=== PATIENT | male | born 1975 | race Caucasian/White ===

== ENCOUNTER 2017-11-10 18:37 | Emergency (ER) | payer MEDICAID, OTHER ==
--- NOTE | 2017-11-10 19:12 | ED PDOC ---
HPI: CCC, URI, Sore Throat Time Seen by Provider: 11/10/17 18:58 Chief Complaint (Nursing): Flu-like Symptoms Chief Complaint (Provider): Flu-like Symptoms History Per: Patient History/Exam Limitations: no limitations Onset/Duration Of Symptoms: Days (x2) Current Symptoms Are (Timing): Still Present Associated Symptoms: Fever, Cough, Sputum, Myalgias Additional Complaint(s): Gurwinder Zhao is a 42 y/o male who presents to the ER complaining of a cough associated with body aches, fever, dizziness, since yesterday afternoon. Cough is productive of sputum. He admits to having some chest tightness with coughing. Patient did not receive flu shot this year. Took Naprosyn 1 hour prior to arrival with no improvement. No nausea, vomiting, abdominal pain, sob, or headache. (+) sweats PMD: None Past Medical History Reviewed: Historical Data, Nursing Documentation, Vital Signs Vital Signs: Last Vital Signs Temp 100.9 F H 11/10/17 18:42 Pulse 130 H 11/10/17 18:42 Resp 16 11/10/17 18:42 BP 150/97 H 11/10/17 18:42 Pulse Ox 100 11/10/17 20:27 - Medical History PMH: No Chronic Diseases - Family History Family History: States: Unknown Family Hx - Immunization History Hx Tetanus Toxoid Vaccination: Yes Hx Influenza Vaccination: No Hx Pneumococcal Vaccination: No - Home Medications Home Medications: Ambulatory Orders Medication Instructions Recorded Cyclobenzaprine [Flexeril] 5 mg PO TID #21 tab 08/05/16 Naproxen [Naprosyn] 500 mg PO BID #20 tab 08/05/16 Acetaminophen [Acetaminophen Extra 2 tab PO Q4 PRN #24 tablet 11/10/17 Strength] Ibuprofen [Motrin] 600 mg PO Q8 PRN #21 tab 11/10/17 Oseltamivir Phosphate [Tamiflu] 75 mg PO BID #9 capsule 11/10/17 - Allergies Allergies/Adverse Reactions: Allergies Allergy/AdvReac Type Severity Reaction Status Date / Time Penicillins Allergy Intermediate SWELLING Verified 08/05/16 21:26 Review of Systems ROS Statement: Except As Marked, All Systems Reviewed And Found Negative Constitutional: Positive for: Fever, Sweats, Other (Body aches) Cardiovascular: Positive for: Chest Pain (tightness, with cough) Respiratory: Positive for: Cough, Sputum Gastrointestinal: Negative for: Nausea, Vomiting, Diarrhea Neurological: Positive for: Dizziness. Negative for: Headache Physical Exam - Reviewed Nursing Documentation Reviewed: Yes Vital Signs Reviewed: Yes - Physical Exam Appears: Positive for: Non-toxic, No Acute Distress Head Exam: Positive for: ATRAUMATIC, NORMOCEPHALIC Skin: Positive for: Normal Color, Warm, DRY Eye Exam: Positive for: EOMI, Normal appearance, PERRL ENT: Positive for: Pharynx Is (clear), Nasal Congestion. Negative for: Pharyngeal Erythema, Tonsillar Exudate Neck: Positive for: Normal, Painless ROM Cardiovascular/Chest: Positive for: Tachycardia (with regular rhythm). Negative for: Murmur Respiratory: Positive for: Decreased Breath Sounds. Negative for: Rhonchi, Wheezing, Respiratory Distress Extremity: Positive for: Normal ROM. Negative for: Deformity Neurologic/Psych: Positive for: Alert, Oriented - ECG O2 Sat by Pulse Oximetry: 100 (RA) Pulse Ox Interpretation: Normal - Progress ED Course And Treament: cxr: nad influenza A positive acetaminophen 975mg x 1 dose tamiflu 75 mg x 1 dose NS 1 liter wide open toradol 15 mg iv x 1 dose Medical Decision Making Medical Decision Making: Time: 19:00 Initial Plan: --Chest x-ray --Tylenol 975 mg PO --Influenza A B --Reevaluation 19:57 Pt continues to be tachy. Started IV fluids and 15 mg Toradol given. Scribe Attestation: Documented by Stefani Pascal, acting as a scribe for Jaqueline Holliday PA-C Provider Scribe Attestation: All medical record entries made by the Scribe were at my direction and personally dictated by me. I have reviewed the chart and agree that the record accurately reflects my personal performance of the history, physical exam, medical decision making, and the department course for this patient. I have also personally directed, reviewed, and agree with the discharge instructions and disposition. Disposition - Clinical Impression Clinical Impression: Influenza - Disposition Referrals: [facility] [Outside] Disposition: Routine/Home Disposition Time: 20:42 Condition: FAIR Prescriptions: Acetaminophen [Acetaminophen Extra Strength] 2 tab PO Q4 PRN #24 tablet PRN Reason: Fever >100.4 F Ibuprofen [Motrin] 600 mg PO Q8 PRN #21 tab PRN Reason: Fever >100.4 F Oseltamivir Phosphate [Tamiflu] 75 mg PO BID #9 capsule Instructions: Influenza (ED) Forms: [employer] (Mont[place]erratian), [facility] ED School/Work Excuse
[2017-11-10] MEDS ORDERED: Sodium Chloride 0.9% 1,000 ML IV STA (19:57)
[2017-11-10 20:59] VITALS: BP 127/72; PULSE 87; RESP 18; TEMP 97.8; O2SAT 97
--- NOTE | 2017-11-11 09:03 | RAD ---
HISTORY: cough COMPARISON: No prior. TECHNIQUE: Chest PA and lateral FINDINGS: LUNGS: No active pulmonary disease. PLEURA: No significant pleural effusion identified. No pneumothorax apparent. CARDIOVASCULAR: Normal. OSSEOUS STRUCTURES: No significant abnormalities. VISUALIZED UPPER ABDOMEN: Normal. OTHER FINDINGS: None. IMPRESSION: No active disease.
== END 2017-11-10 21:11 | disposition home or self-care (01) ==
LOC: H.ER 18:37
DX: J10.1 Influenza due to other identified influenza virus with other respiratory manifestations (principal); Z88.0 Allergy status to penicillin
CPT/HCPCS: 71046; 87804; 96374; 99283; J1885; J7040

== ENCOUNTER 2018-08-04 11:50 | Emergency (ER) | payer MEDICAID, OTHER ==
[2018-08-04 11:58] VITALS: BMI 31.4
[2018-08-04 12:59] VITALS: RESP 18
--- NOTE | 2018-08-04 13:01 | RAD ---
Date of service: 08/04/2018 HISTORY: possible admission COMPARISON: Chest radiograph dated 11/10/2017. FINDINGS: LUNGS: No active pulmonary disease. PLEURA: No significant pleural effusion identified, no pneumothorax apparent. CARDIOVASCULAR: Normal. OSSEOUS STRUCTURES: Unchanged. VISUALIZED UPPER ABDOMEN: Normal. OTHER FINDINGS: None. IMPRESSION: No active disease.
[2018-08-04 13:29] LABS: VENOUS BLOOD GAS BASE EXCESS 2.1 mmol/L (0.0-2.0); VENOUS BLOOD GAS PCO2 52 mmHg (40-60); VENOUS BLOOD GAS PO2 25 mm/Hg (30-55); VENOUS BLOOD PH 7.35 (7.32-7.43)
[2018-08-04 13:38] LABS: BASO % 0.5 % (0.0-2.0); EOS # 0.1 K/uL (0.0-0.7); EOS % 1.3 % (0.0-4.0); HEMOGLOBIN 15.8 g/dL (12.0-18.0); LYMPH # 1.7 K/uL (1.0-4.3); LYMPH % 31.6 % (20.0-40.0); MEAN CELL VOLUME 89.4 fl (80.0-94.0); MEAN CORPUSCULAR HEMOGLOBIN 30.3 pg (27.0-31.0); MEAN PLATELET VOLUME 9.7 fl (7.2-11.7); MONO # 0.7 K/uL (0.0-0.8); MONO % 12.8 % (0.0-10.0); NEUT # 2.9 K/uL (1.8-7.0); NEUT % 53.8 % (50.0-75.0); NRBC % 0.1 % (0.0-0.0); RBC 5.22 Mil/uL (4.40-5.90); RED CELL DISTRIBUTION WIDTH 14.1 % (11.5-14.5); WHITE BLOOD COUNT 5.4 K/uL (4.8-10.8)
[2018-08-04 13:44] LABS: BLOOD UREA NITROGEN 16 mg/dl (9-20); CALCIUM 9.2 mg/dL (8.4-10.2); GFR NON-AFRICAN AMERICAN > 60
[2018-08-04 13:46] LABS: PROTHROMBIN TIME 11.2 Seconds (9.8-13.1)
[2018-08-04 13:49] LABS: PARTIAL THROMBOPLASTIN TIME 33.2 Seconds (25.6-37.1)
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
[2018-08-04] MEDS ORDERED: Naproxen 500 MG TAB PO STA (15:01)
[2018-08-04] MEDS ORDERED: Naproxen 500 MG TAB PO ONE (15:06)
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
[2018-08-04] MEDS ORDERED: Lidocaine 5% Patch TD STA (18:56)
[2018-08-04 20:06] VITALS: BP 146/91; PULSE 71; TEMP 98
--- NOTE | 2018-08-04 20:06 | ED PDOC ---
- Laboratory Results Result Diagrams: 08/04/18 13:15 08/04/18 13:15 - ECG O2 Sat by Pulse Oximetry: 99 Pulse Ox Interpretation: Normal Medical Decision Making Medical Decision MakinPM Case endorsed to me by Dr. Dumas pending 2nd troponin 8PM Patient informed of results, states he's feeling well Vitals normalized Advised NSAIDs, lidocaine patch, and rest Well appearing upon discharge Disposition - Clinical Impression Clinical Impression: Chest wall pain, Rib fracture - POA Present On Arrival: None - Disposition Referrals: [facility] [Outside] Disposition: Routine/Home Disposition Time: 20:06 Condition: IMPROVED Additional Instructions: Apply lidocaine patches as prescribed and only if needed. Follow up with primary medical doctor in one week for further evaluation of rib fracture and to discuss hypertension. Return to the emergency department if symptoms worsen or if new symptoms develop. Prescriptions: Lidocaine 5% [Lidoderm] 1 ea TD Q12 PRN #10 patch PRN Reason: left rib pain Instructions: Chest Pain That Is Not Caused by the Heart (DC), Rib Fracture (DC) Forms: [employer] (Italian) Print Language: DJIBOUTIAN
--- NOTE | 2018-08-04 21:53 | CARD ---
APPROVED REPORT Date of service: 08/04/2018 EKG Measurement Heart [id number] <Conclusion> Sinus rhythm with premature supraventricular complexes Moderate voltage criteria for LVH, may be normal variant Borderline ECG
[2018-08-05] MEDS ORDERED: Lidocaine 5% Patch TD SCH (09:00)
--- NOTE | 2018-08-05 09:17 | CARD ---
APPROVED REPORT Date of service: 08/04/2018 EKG Measurement Heart [id number] <Conclusion> Sinus bradycardia Moderate voltage criteria for LVH, may be normal variant Borderline ECG
[2018-08-05 14:40] VITALS: O2SAT 100
== END 2018-08-04 20:10 | disposition home or self-care (01) ==
LOC: H.ER 11:50
DX: R07.9 Chest pain, unspecified (principal); S22.32XA Fracture of one rib, left side, initial encounter for closed fracture; I10 Essential (primary) hypertension; R07.89 Other chest pain; Z88.0 Allergy status to penicillin; Y93.55 Activity, bike riding